=== PATIENT | female | born 1950 | race Two or more races ===

== ENCOUNTER 2018-04-28 11:07 | Emergency (ER) | payer BC, MEDICARE, OTHER ==
--- NOTE | 2018-04-28 13:36 | ER Document Report ---
ED Medical Screen (RME) - General Chief Complaint: Post Surgical Pain Stated Complaint: RIGHT LEG PAIN Time Seen by Provider: 04/28/18 13:33 Notes: Patient is here complaining of a hard painful swelling in the right thigh region. She had surgery to bypass her right femoral artery about 4 months ago and has a residual incision all the way down the inner aspect of the patient's right leg. She is with [employer], here to help out with [place] and staying in a local hotel room. She is on her feet most of the other time of the day. She tries propping her leg up when she comes in in the evenings. Is not aware of any injury to that area. Patient is on Eliquis, losartan, and Cardizem. TRAVEL OUTSIDE OF THE [place] IN LAST 30 DAYS: No - Related Data Allergies/Adverse Reactions: lisinopril Adverse Reaction (Verified 04/28/18 13:18) Past Medical History - Social History Chew tobacco use (# tins/day): No Frequency of alcohol use: None Drug Abuse: None - Past Medical History Cardiac Medical History: Reports: Hx Hypertension Renal/ Medical History: Denies: Hx Peritoneal Dialysis Past Surgical History: Reports: Hx Abdominal Surgery - bladder, Hx Cardiac Surgery, Hx Cholecystectomy, Hx Hysterectomy, Hx Vascular Surgery Physical Exam - Vital signs Vitals: Temp Pulse Resp BP Pulse Ox 98.8 F 91 16 126/52 H 100 04/28/18 11:32 04/28/18 11:32 04/28/18 11:32 04/28/18 11:32 04/28/18 11:32 Course - Vital Signs Vital signs: Temp Pulse Resp BP Pulse Ox 98.8 F 91 16 126/52 H 100 04/28/18 11:32 04/28/18 11:32 04/28/18 11:32 04/28/18 11:32 04/28/18 11:32
[2018-04-28 14:28] LABS: INTERNATIONAL RATION (INR) 0.96; PROTHROMBIN TIME 13.3 SEC (11.4-15.4)
[2018-04-28 14:37] LABS: ABSOLUTE EOSINOPHILS # (AUTO) 0.1 10^3/uL (0.0-0.6); ABSOLUTE LYMPHOCYTES (AUTO) 2.1 10^3/uL (0.5-4.7); ABSOLUTE MONOCYTES (AUTO) 0.9 10^3/uL (0.1-1.4); ABSOLUTE NEUT (AUTO) 8.5 10^3/uL (1.7-8.2); BASOPHILS % (AUTO) 0.4 % (0-2); EOSINOPHILS % (AUTO) 1.2 % (0-6); LYMPHOCYTES % (AUTO) 17.7 % (13-45); MEAN CORPUSCULAR HEMOGLOBIN 27.4 pg (27.0-33.4); MEAN CORPUSCULAR HGB CONC 32.3 g/dL (32.0-36.0); MEAN CORPUSCULAR VOLUME 85 fl (80-97); MONOCYTES % (AUTO) 7.3 % (3-13); PLATELET COUNT 352 10^3/uL (150-450); RED BLOOD COUNT 4.01 10^6/uL (3.72-5.28); RED CELL DISTRIBUTION WIDTH 14.3 % (11.5-14.0); SEGMENTED NEUTROPHILS % (AUTO) 73.4 % (42-78); TOTAL CELLS COUNTED % (AUTO) 100 %; WHITE BLOOD COUNT 11.6 10^3/uL (4.0-10.5)
[2018-04-28 14:45] LABS: ALANINE AMINOTRANSFERASE 34 U/L (9-52); ALBUMIN 4.3 g/dL (3.5-5.0); ALKALINE PHOSPHATASE 138 U/L (38-126); ANION GAP 13 (5-19); ASPARTATE AMINO TRANSFERASE 15 U/L (14-36); BILIRUBIN,DIRECT 0.3 mg/dL (0.0-0.4); BILIRUBIN,TOTAL 0.4 mg/dL (0.2-1.3); BLOOD UREA NITROGEN 17 mg/dL (7-20); CALCIUM 9.8 mg/dL (8.4-10.2); CARBON DIOXIDE 26 mmol/L (22-30); CHLORIDE 104 mmol/L (98-107); GLUCOSE 98 mg/dL (75-110); POTASSIUM 3.9 mmol/L (3.6-5.0); SODIUM 142.9 mmol/L (137-145); TOTAL PROTEIN 7.7 g/dL (6.3-8.2)
--- NOTE | 2018-04-28 17:49 | ER Document Report ---
ED General - General Chief Complaint: Post Surgical Pain Stated Complaint: RIGHT LEG PAIN Time Seen by Provider: 04/28/18 13:33 Mode of Arrival: Ambulatory Information source: Patient Notes: This is a 67-year-old female with vascular disease status post stenting of graft for her right lower extremity 2 weeks ago. The patient is on Eliquis. Patient is up here with [employer] and presents with right thigh pain. Patient states she feels fullness and pain in a 6 inch area on the medial thigh which is in the area of where her stent was placed 2-1/2 weeks ago. She denies any fever, chills. She denies any redness to the area. TRAVEL OUTSIDE OF THE [place] IN LAST 30 DAYS: No - HPI Onset: Last week Onset/Duration: Gradual Quality of pain: Dull Severity: Mild Pain Level: 1 Associated symptoms: denies: Chest pain, Chills, Fever, Shortness of breath Exacerbated by: Denies Relieved by: Denies Similar symptoms previously: No Recently seen / treated by doctor: Yes - Related Data Allergies/Adverse Reactions: lisinopril Adverse Reaction (Verified 04/28/18 13:18) Past Medical History - General Information source: Patient - Social History Smoking Status: Never Smoker Cigarette use (# per day): No Chew tobacco use (# tins/day): No Frequency of alcohol use: None Drug Abuse: None Lives with: Family Family History: None Patient has suicidal ideation: No Patient has homicidal ideation: No - Past Medical History Cardiac Medical History: Reports: Hx Hypertension Pulmonary Medical History: Reports: None EENT Medical History: Reports: None Neurological Medical History: Reports: None Endocrine Medical History: Reports: None Renal/ Medical History: Reports: None. Denies: Hx Peritoneal Dialysis Psychiatric Medical History: Reports: None Past Surgical History: Reports: Hx Abdominal Surgery - bladder, Hx Cardiac Surgery, Hx Cholecystectomy, Hx Hysterectomy, Hx Vascular Surgery Review of Systems - Review of Systems Constitutional: denies: Chills, Fever EENT: No symptoms reported Cardiovascular: denies: Chest pain, Palpitations, Heart racing Respiratory: No symptoms reported Gastrointestinal: No symptoms reported Genitourinary: No symptoms reported Female Genitourinary: No symptoms reported Musculoskeletal: See HPI Skin: See HPI Hematologic/Lymphatic: No symptoms reported Neurological/Psychological: No symptoms reported Physical Exam - Vital signs Vitals: Temp Pulse Resp BP Pulse Ox 98.8 F 91 16 126/52 H 100 04/28/18 11:32 04/28/18 11:32 04/28/18 11:32 04/28/18 11:32 04/28/18 11:32 Notes: Physical exam: GENERAL: 67-year-old female, alert and oriented 3, no acute distress HEAD: Atraumatic, normocephalic. EYES: Pupils equal round and reactive to light, extraocular movements intact, sclera anicteric, conjunctiva are normal. ENT: TMs normal, nares patent, oropharynx clear without exudates. Moist mucous membranes. NECK: Normal range of motion, supple without obvious mass or JVD. LUNGS: Breath sounds clear to auscultation bilaterally and equal. No wheezes rales or rhonchi. HEART: Regular rate and rhythm without murmurs, rubs or gallops. ABDOMEN: Soft, normoactive bowel sounds. No tenderness to palpation. No guarding, no rebound. No masses appreciated. EXTREMITIES: The patient's foot is warm and she has good cap refill. Her area of tenderness is a 6 inch area in the medial aspect of the thigh which lies over 1 of the graft sites. Her surgical scars look dry and intact. There is no erythema or warmth over the area of tenderness. NEUROLOGICAL: Cranial nerves II through XII grossly intact. Normal speech, moving all extremities. PSYCH: Normal mood, normal affect. SKIN: Warm, Dry, normal turgor, no rashes or lesions noted. Course - Re-evaluation Re-evalutation: 04/28/18 23:58 I did try and get a hold of the patient's vascular surgeon (Dr. Elise) in [place]. The office ([phone]) did not have an option for getting a hold of the on-call vascular surgeon. I then called the [facility] and was given the service number for the practice ( [phone]). I did speak to one physician who said he was not collision repairer and gave me the number for Dr. Elise's cell ([phone]). I left a message on this phone but never received a call back. The venous study showed no blood clot. I did discuss the case with Dr. Marlyn Siu who is reading the serial vascular ultrasound and he reported that there was flow throughout 1 of the graft sites and stents and flow down to the leg but it was monophasic. And that there was an area of fluid around the graft which could represent hematoma. I discussed the results of the tests and the readings with the patient. I have advised her to return to [place] and not to stress the area of surgery. She is walking around the ER without difficulty. She is upset that she has been here 11 hours. I explained her that the vascular studies took quite a long time to perform as well as interpret given the multiple different procedures she has had. I have also discussed the difficulty and not having any reports about her new physiology given the graft sites. I explained to her that I spent quite a long time trying to reach her vascular surgeon. In any event, I recommended she go back to [place] which she is unwilling to do. I do not think it is espino to stop the Eliquis because that may precipitate vascular occlusion of the stent. At the same time, the fluid could represent bleeding, hence I would rather she not stress that area. She asked me specifically on whether she could take ibuprofen for pain and I have told her on several occasions that this is not a good idea. As far as the fluid pocket, she has no fever or white count and there is no overlying erythema and there is no evidence of infection at this point. I have advised that she return to the emergency room if she develops fever or increasing pain or redness over the area. - Vital Signs Vital signs: Temp Pulse Resp BP Pulse Ox 98.6 F 87 16 156/69 H 99 04/28/18 21:13 04/28/18 21:13 04/28/18 21:13 04/28/18 21:13 04/28/18 21:13 - Laboratory Result Diagrams: 04/28/18 13:45 04/28/18 13:45 Laboratory results interpreted by me: 04/28/18 04/28/18 13:45 13:45 WBC 11.6 H Hgb 11.0 L Hct 34.0 L RDW 14.3 H Absolute Neutrophils 8.5 H Alkaline Phosphatase 138 H - Diagnostic Test Radiology reviewed: Image reviewed, Reports reviewed - Venous Doppler shows no evidence of DVT. Arterial Doppler shows monophasic flow through the graft side. Discharge - Discharge Clinical Impression: Right leg pain Condition: Stable Disposition: HOME, SELF-CARE Additional Instructions: As we discussed, the ultrasound of the leg shows that there is blood flow that is getting through the stent and down to the lower leg. This is good, but some of the other graft sites do not show flow. So it is important that you continue with the Eliquis. I did try and call Dr. Elise several times and I did leave a message on his machine. The ultrasound does show some fluid around the stent which could be hematoma from the procedure itself or could be some bleeding from the Eliquis. Given that we need to keep the stent is open, its important to continue the Eliquis. However, its important to try to avoid any type of injury or stress on that leg. I would not take ibuprofen or Advil as this affects the platelets and make you more prone to bleeding. You can take Tylenol for pain. I have also prescribed oxycodone which is a narcotic. I would like you to follow-up with Dr. Elise and ideally I would like you to go back to [place] now. If you are staying in the area, return to the emergency room for worsening pain or if your foot becomes cool or blue or if you start developing fever. Also, if the area on the inner thigh becomes red or swollen or warm, this may be signs of infection and I want you to come back for evaluation. The pain medicine you're taking prescribed as a narcotic. There are several important things you should know about this medicine: 1. Taking narcotics for too long can lead to physical and mental dependence. Take this medicine only if really needed and in the lowest quantity to achieve pain relief. 2. Do not drink alcohol while on this medicine. Alcohol interacts with narcotics and the combination can be dangerous. 3. Do not drive or operate machinery while on this medicine. 4. Narcotics do cause constipation, so drink plenty of fluids and daily stool softeners. Prescriptions: Oxycodone HCl 5 mg PO Q6HP PRN #25 tablet PRN Reason:
[2018-04-28] MEDS ORDERED: ACETAMINOPHEN 325 MG TABLET PO ONE (21:04)
[2018-04-28 21:14] VITALS: BP 156/69
--- NOTE | 2018-04-28 21:21 | RADIOLOGY REPORT (SQ) ---
EXAM DESCRIPTION: VENOUS UNILATERAL LOWER COMPLETED DATE/TIME: 04/28/2018 9:05 pm REASON FOR STUDY: Hx femoral bypass surgery, pain and swelling COMPARISON: None. TECHNIQUE: Dynamic and static villarreal scale and color images acquired of the right leg venous system. S elected spectral images acquired with additional compression and augmentation maneuvers. The contrala teral common femoral vein and saphenofemoral junction were also imaged. Images stored on PACS. LIMITATIONS: None. FINDINGS: RIGHT COMMON FEMORAL: Normal phasicity, compression and augmentation. No visualized echogenic material on g ray scale. No defects on color images. FEMORAL: Normal compression and augmentation. No visualized echogenic material on villarreal scale. No defe cts on color images. POPLITEAL: Normal compression, augmentation. No visualized echogenic material on villarreal scale. No defec ts on color images. CALF VESSELS: Normal compression, augmentation. No visualized echogenic material on villarreal scale. No de fects on color images. GSV and SSV: Normal compression, augmentation. No visualized echogenic material on villarreal scale. No def ects on color images. ANY DEEP VENOUS INSUFFICIENCY: Not evaluated. ANY EVIDENCE OF POPLITEAL CYST: No. OTHER: No other significant finding. LEFT COMMON FEMORAL VEIN AND SAPHENOFEMORAL JUNCTION: Normal phasicity, compression and augmentation. No visualized echogenic material on villarreal scale. No de fects on color images. IMPRESSION: NO EVIDENCE OF DVT OR SVT IN THE RIGHT LEG. TECHNICAL DOCUMENTATION: JOB ID: [id number] [employer]- All Rights Reserved Reading location - IP/workstation name: [email or web address]
--- NOTE | 2018-04-29 12:36 | XCELERA REPORT ---
[address] [address] Lower Extremity Arterial Evaluation Name: JAS LEUNG Age: 67 yrs Gender: Female : 1950 Patient Status: Emergency Patient Location: ER Study Date: 04/28/2018 05:12 PM Procedure: A color flow and duplex scan of the lower extremity arteries was performed on the right with velocity and waveform anaylsis. 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 Stent in Deep Femoral artery and in the Femoral, Patent in Deep, absent flow in Femoral. Apparent graft to Distal Femoral, patent. Monophasic flow with well preserved velocity, amplitude in Popliteal, Anterior tibial and reduced in Peroneal ,occlusion in Posterior Tibial. Small non vascularised fluid collections adjacent to Femoral artery. Occlusion at the Femoral artery. With stents, bypass. Sequential disease as noted. Critical Findings Discussed with Dr Caceres at about 2049 hours. Interpretation Summary Severe hemodynamically significant lesions in the right lower extremity only, on duplex imaging, at rest. Complex findings of stents in Deep and Femoral arteries, patent graft, Monophasic flow with good velocities in some distal vessels. Small fluid collections may be due to interventions. Reference to operative reports would be invaluable. : MICHEL HURTADO > Ke Siu
== END 2018-04-28 21:15 | disposition home or self-care (01) ==
LOC: ER 11:07
DX: M79.651 Pain in right thigh (principal); I10 Essential (primary) hypertension; Z95.820 Peripheral vascular angioplasty status with implants and grafts; Z79.01 Long term (current) use of anticoagulants
CPT/HCPCS: 36415; 80053; 85025; 85610; 93926; 93971; 99284